=== PATIENT | male | born 1975 | race Caucasian/White ===

== ENCOUNTER 2017-10-28 14:30 | Emergency (ER) | payer OTHER ==
[~2017-10-28] VITALS: Ht 172.7 cm; Wt 91.0 kg
[~2017-10-28 14:30] MED LIST: LISI-170 PO; OMEP1PAC PO; VENL100T PO; [UNRECOGNIZED DRUG - OTHER] PO
[2017-10-28 15:58] VITALS: BP 142/79
== END 2017-10-28 16:02 | disposition home or self-care (01) ==
LOC: ED 15:50
DX: M25.521 Pain in right elbow (principal); M25.511 Pain in right shoulder; M54.12 Radiculopathy, cervical region; K21.9 Gastro-esophageal reflux disease without esophagitis; I10 Essential (primary) hypertension; Z88.6 Allergy status to analgesic agent
CPT/HCPCS: 72050; 99284